=== PATIENT | female | born 1970 | race Caucasian/White ===

== ENCOUNTER 2020-10-13 21:43 | Emergency (ER) | payer SELFPAY ==
[2020-10-13 21:52] VITALS: BP 111/78; PULSE 68; TEMP 98; BMI 20.6
== END 2020-10-14 00:42 | disposition home or self-care (01) ==
LOC: FER 21:43
DX: S63.235A Subluxation of proximal interphalangeal joint of left ring finger, initial encounter (principal)
CPT/HCPCS: 73140-TC-LT-FY; 99283-25